=== PATIENT | male | born 1995 | race Caucasian/White ===

== ENCOUNTER 2018-01-25 19:09 | Outpatient (REF) | payer BC, SELFPAY | END 2018-01-25 19:29 | LOC: LBN 19:09 | PROVIDERS: PCP Nurse Practitioner; Referring Provider Nurse Practitioner; Visit Provider Nurse Practitioner | DX: J02.9 Acute pharyngitis, unspecified (principal) | CPT/HCPCS: 87070 ==

== ENCOUNTER 2018-01-28 08:55 | Emergency (ER) | payer BC, SELFPAY ==
[2018-01-28 09:01] VITALS: BP 127/95; RESP 20; TEMP 37.2; O2SAT 95
[2018-01-28 09:20] VITALS: RESP 18
[2018-01-28] MEDS: predniSONE 20 MG TAB 60 MG PO (09:52)
[2018-01-28] MEDS: Ketorolac 60 MG/2 ML VIAL IM (09:52)
--- NOTE | 2018-01-28 09:52 | ED.GENADUL_ITS ---
Discharge Plan Disposition Patient Disposition: HOME Condition: Stable Discharge Details Chief Complaint: GenMedical Clinical Impression: Infectious mononucleosis Primary Care Provider: Jaclyn Rueda ED Provider: Ania Robison Home Meds and New Rx's Prescriptions: New prednisone 20 mg tablet 20 mg PO DIRECTED Qty: 12 RF: 0 lidocaine HCl 2 % solution 15 ml MM Q12H PRN (Reason: sore throat) Qty: 30 RF: 0 Discontinued azithromycin [Zithromax Z-Tristin] 250 mg tablet See Label Instructions PO .COMPLEX Qty: 6 RF: 0 Discharge Instructions Instructions: Mononucleosis (ED) Additional Instructions: Drink plenty of fluids and get plenty of rest. Alternate Tylenol and Motrin as needed and directed for pain. Take the steroids until finished. Use the lidocaine viscous solution as directed. Follow-up with your primary care doctor in 1 week for reevaluation. Return to the emergency department with any worsening or new concerning symptoms. Stand Alone Forms: Work Release Discharge Data Discharge Physician: Ania Robison Medical Decision Making 22-year-old male with no past medical history who presents for bilateral tonsil swelling and difficulty swallowing over the past 6 days. Saw his PCP for same and had a negative rapid strep and was started on Z-Tristin. Throat culture result from 01/25 is negative for growth. He has been taking p.o. but mainly with water and drinking milkshakes. He denies headache or neck pain He is afebrile. He is speaking in full sentences, airway intact, no drooling and he appears nontoxic. He does appear uncomfortable when swallowing. He has significant tonsillar edema and erythema but uvula is midline, there is no obvious tonsillar abscess, however there is significant amount of yellowish- green exudates noted. No submandibular swelling or fullness. Minimal tender anterior cervical lymphadenopathy. Due to exam today, will repeat a rapid strep test. He states he has not been sleeping much but otherwise denies any significant fatigue. We will also check a mono screen. Will give a dose of prednisone and a Toradol injection IM. 1020 --mono screen positive. Rapid strep negative. Patient still complaining of sore throat but appears nontoxic, no drooling and is otherwise pleasant and laughing at times. Will give a lidocaine viscous solution now to swish and spit. Family member is requesting lidocaine viscous solution for home, will give prescription for 2 doses. We will also sent home with a prescription for prednisone. He was instructed to stop the Zithromax. Patient was instructed on the importance of increased rest and fluids to help resolve his symptoms as soon as possible. He was informed that he can be fatigued and sick for several weeks to months. Will give a work note, with recommendations to follow-up with the primary care doctor in the next week for further recommendations on when to return to work. Patient was instructed to return here with any worsening symptoms or concerns. HPI General Mode of arrival: ambulatory . Date/Time Provider Initiated Documentation: 01/28/18 09:07 . Limitations to Documentation: no limitations . Information obtained by: patient . HPI Narrative: Patient is a 22-year-old male with no past medical history who presents for bilateral tonsil swelling and difficulty swallowing over the past 6 days, worse over the past 4 days. Patient saw his PCP for the same 3 days ago and had a negative rapid strep test but was sent home with Zithromax. He had complained of neck pain at that time but he currently denies this. He denies known fever, headache. He states he has been drinking milkshakes over the past 2 days due to difficulty swallowing food. He states he has been swallowing water. He states he was exposed to strep from his sister recently. He has been taking ibuprofen for pain without relief. Last dose last night. Past medical history: None Surgical history: Dental extraction Social history: Denies tobacco, alcohol or drugs Medications: Z-Tristin Allergies: None PCP: Jaclyn Rueda Related Data Home Medications Medication Instructions Recorded Confirmed lidocaine HCl 15 ml MM Q12H PRN #30 ml 01/28/18 prednisone 20 mg PO DIRECTED #12 tab 01/28/18 Previous Rx's Medication Instructions Recorded lidocaine HCl 15 ml MM Q12H PRN #30 ml 01/28/18 prednisone 20 mg PO DIRECTED #12 tab 01/28/18 Allergies Allergy/AdvReac Type Severity Reaction Status Date / Time No Known Allergies Allergy Unverified 01/28/18 09:24 General Stated Complaint: GenMedical SHEELA: 3 Review of Systems Review of Systems All systems reviewed & are unremarkable except as noted in HPI and below Constitutional Denies chills, Denies excessive sweating, Denies fatigue, Denies fever(s), Denies weakness and Denies weight loss Eyes Reports system reviewed and no additional complaints, except as docu and Denies blurry vision ENT Denies vertigo, Denies dizziness, Denies otalgia, Denies nasal congestion, Denies neck pain, Reports sore throat and Denies throat swelling Cardiovascular Denies chest pain, Denies syncope, Denies rapid heart rate and Denies dyspnea Respiratory Denies dyspnea Gastrointestinal Denies abdominal pain, Denies diarrhea and Denies vomiting Genitourinary Denies hematuria, Denies dysuria and Denies flank pain Musculoskeletal Denies back pain, Denies joint swelling and Denies neck pain Integumentary/Breasts Denies lesions and Denies rash Neurologic Denies behavioral changes, Denies confusion, Denies vertigo, Denies dizziness, Denies syncope and Denies weakness Psychiatric Denies behavioral changes, Denies confusion and Denies depression Endocrine Denies excessive sweating and Denies fatigue Hematologic/Lymphatic Denies easy bruising and Denies lymphadenopathy Allergic/Immunologic Denies throat swelling PFSH Family History Mother No problems noted. Father Essential hypertension Sister No problems noted. Brother Essential hypertension Grandfather Diabetes Social History Smoking/Tobacco Use Status: Never Surgical History Tooth extraction Exam Const General: cooperative, healthy appearing and in distress (Appears uncomfortable with swallowing) mild Orientation: alert and awake HENMT Head: normal to inspection Ears: hearing grossly normal bilaterally, external ears normal and TM's normal bilaterally General nose exam: external nose normal Face and sinus: normal facial exam Mouth: oral mucosae normal Teeth and gingiva: dentition normal Throat: uvula midline, posterior oropharynx abnormal (Significant tonsillar edema and erythema but no discrete abscess noted. There is significant yellowish green exudates.) and no uvular edema Eyes General: appearance normal, both eyes and all related structures Eyelids: eyelids normal EOM: EOM intact bilaterally Neck Neck: normal visual inspection, supple, no tracheal deviation and No submandibular swelling Lymphatic: lymphadenopathy (Minimal anterior tender) Chest Chest: normal inspection of the chest Resp Effort & Inspection: normal respiratory effort and able to speak in complete sentences Cardio Rate: regular rate Skin General skin exam: no rashes or lesions noted Neuro General: alert and awake Cognition: normal cognition Speech: speech normal Gait: normal gait Extrem General: normal to inspection, full ROM and normal capillary refill Psych Appearance: grossly normal Mental Status: mental status grossly normal Speech and Movement: speech and movement normal Affect: normal affect Thought Process: normal Course Vital Signs Temperature 99.0 F 01/28/18 09:01 Respiratory Rate 20 01/28/18 09:01 Blood Pressure 127/95 H 01/28/18 09:01 Pulse Oximetry 95 01/28/18 09:01 Temperature 99.0 F 01/28/18 09:01 Temperature Source Temporal Artery Scan 01/28/18 09:01 Respiratory Rate 18 01/28/18 09:20 Respiratory Effort 01/28/18 09:20 Respiratory Depth Normal 01/28/18 09:20 Blood Pressure 127/95 H 01/28/18 09:01 Pulse Oximetry 95 01/28/18 09:01 Oxygen Delivery Method Room Air 01/28/18 09:01 Oxygen Flow Rate 0 01/28/18 09:01 Pain Level 9 01/28/18 09:01
[2018-01-28 10:01] LABS: Mono Screening POSITIVE (Negative)
[2018-01-28] MEDS: Lidocaine 2% Viscous 15 ML CUP PO (10:45)
[2018-01-28 10:51] VITALS: BP 138/74; PULSE 82; RESP 16; TEMP 37.1; O2SAT 98
== END 2018-01-28 10:51 | disposition home or self-care (01) ==
PROVIDERS: Emergency Provider Physician Assistant; PCP Nurse Practitioner
DX: B27.90 Infectious mononucleosis, unspecified without complication (principal)
CPT/HCPCS: 36415; 87880; 96372; 99284; 86308; 87081; J1885; J7512

== ENCOUNTER 2019-06-04 16:35 | Outpatient (CLI) | payer BC, SELFPAY ==
--- NOTE | 2019-06-04 16:42 | DI.RAD_ITS ---
EXAM: XR HIP RT COMPLETE AP PELVIS CLINICAL HISTORY: Pain from a fall, r/o fracture on R side, W19.XXXA. TECHNIQUE: 2D digital imaging was performed. COMPARISON: No exams were available for comparison FINDINGS: BONES: No acute fracture is present. No bony destructive lesion is seen. JOINTS: No dislocation present. SOFT TISSUE: Normal. IMPRESSION: Unremarkable radiographs of the right hip. Unremarkable radiographs of the pelvis.
--- NOTE | 2019-06-04 16:45 | DI.RAD_ITS ---
EXAM: XR SACRUM COCCYX CLINICAL HISTORY: Pain from fall, r/o fracture on R side, W19.XXXA. TECHNIQUE: 2D digital imaging was performed. COMPARISON: No exams were available for comparison FINDINGS: BONES: No acute fracture is present. No bony destructive lesion is seen. JOINTS: No dislocation present. SOFT TISSUE: Normal. IMPRESSION: Unremarkable radiographs of the sacrum and coccyx.
== END 2019-06-04 16:55 ==
PROVIDERS: PCP Nurse Practitioner; Visit Provider Family Medicine
DX: M25.551 Pain in right hip (principal); R10.2 Pelvic and perineal pain; W19.XXXA Unspecified fall, initial encounter; M53.3 Sacrococcygeal disorders, not elsewhere classified
CPT/HCPCS: 72220; 73502

== ENCOUNTER 2022-06-30 02:50 | Outpatient (CLI) | payer BC, SELFPAY ==
[2022-06-30 09:25] LABS: HCT 48.3 % (40.0-50.0); HGB 16.8 g/dL (13.5-17.5); MCH 30.4 pg (27.0-33.0); MCHC 34.8 % (32.0-36.0); MCV 87 fL (80-95); MPV 9.8 fL (8.0-11.0); Platelet Count 241 10^3/uL (130-400); RBC 5.53 10^6/uL (4.36-5.78); RDW 11.8 % (11.8-14.1); RDW-SD 37.7 fL
[2022-06-30 09:39] LABS: Hemoglobin A1C 5.2 % (<5.7)
[2022-06-30 09:50] LABS: ALT 45 U/L (16-63); AST 23 U/L (15-37); Albumin 4.3 g/dL (3.4-5.0); Alkaline Phosphatase 69 U/L (46-116); Anion Gap 7.1 mmol/L (3-11); BUN 13 mg/dL (7-18); Bilirubin, Total 0.8 mg/dL (0.2-1.0); CO2 29.9 mmol/L (21.0-32.0); CREATININE 1.2 mg/dL (0.70-1.30); Calcium 9.3 mg/dL (8.5-10.1); Calculated LDL 134 mg/dL (<100); Chloride 104 mmol/L (98-107); Cholesterol 201 mg/dL (<200); Estimated GFR 84.48 (mL/min/1.73m2); Glucose 103 mg/dL (74-106); HDL Cholesterol 52 mg/dL (40-60); Potassium 3.8 mmol/L (3.5-5.1); Sodium 141 mmol/L (136-145); TSH (W/Ref FT4) 1.49 uIU/mL (0.36-3.74); Total Protein 7.8 g/dL (6.4-8.2); Triglyceride 76 mg/dL (<150)
[2022-07-02 14:20] LABS: ANA Interpretation Positive (Negative)
[2022-07-10 15:28] LABS: Testosterone, Free 14.7 ng/dL (5.05-19.8); Testosterone, Total 418 ng/dL (240-950)
== END 2022-06-30 02:51 | disposition home or self-care (01) ==
PROVIDERS: PCP Nurse Practitioner; Referring Provider Nurse Practitioner; Visit Provider Nurse Practitioner
DX: E66.3 Overweight (principal); F52.32 Male orgasmic disorder; R20.9 Unspecified disturbances of skin sensation; Z83.3 Family history of diabetes mellitus; Z82.49 Family history of ischemic heart disease and other diseases of the circulatory system
CPT/HCPCS: 36415; 80053; 80061; 84402; 84403; 85027; 83036; 84443; 86038

== ENCOUNTER 2024-06-21 18:01 | Outpatient (REF) | payer OTHER, SELFPAY ==
[2024-06-21 22:50] LABS: COVID-19 PCR Negative (Negative); Influenza A PCR Negative (Negative); Influenza B PCR Negative (Negative); RSV PCR Negative (Negative)
[2024-06-21 22:52] LABS: Source Nasopharynx
== END 2024-06-21 18:02 | disposition home or self-care (01) ==
LOC: LBN 18:01
PROVIDERS: PCP Nurse Practitioner; Visit Provider Physician Assistant Medical
DX: B34.9 Viral infection, unspecified (principal)
CPT/HCPCS: 87637

== ENCOUNTER 2025-03-27 07:40 | Outpatient (CLI) | payer OTHER, SELFPAY ==
[2025-03-27 08:13] LABS: Cholesterol 155 mg/dL (<200); HDL Cholesterol 36 mg/dL (>40)
[2025-03-29 20:41] LABS: B. miyamotoi PCR Negative (Negative); Babesia divergens/MO-1 Negative (Negative); Ehrlichia muris eauclairensis Negative (Negative)
== END 2025-03-27 07:41 | disposition home or self-care (01) ==
LOC: LBO 07:40
PROVIDERS: PCP Nurse Practitioner; Visit Provider Family Medicine
DX: A69.20 Lyme disease, unspecified (principal); E78.5 Hyperlipidemia, unspecified
CPT/HCPCS: 36415; 80061; 87798